=== PATIENT | male | born 1965 | race Two or more races ===

== ENCOUNTER 2025-02-01 09:04 | Emergency (ER) | payer MEDICAID, SELFPAY ==
[2025-02-01 09:11] VITALS: BP 149/79; PULSE 67; RESP 18; TEMP 36.5; O2SAT 98; BMI 30.4
--- NOTE | 2025-02-01 09:21 | PD.EDLOWEX ---
Lower Extremity Injury RME/HPI General Chief Complaint: Extremity Injury, Lower Stated Complaint: Ulcer to left foot Time Seen by Provider: 02/01/25 09:20 Arrival date/time: 02/01/25 09:04 59-year-old male with medical history significant for diabetes presents to the emergency department today with complaints of a skin sore to the bottom of his left foot patient reports he first noticed it yesterday. Patient reports no fever nausea or vomiting no significant pain. Patient reports that he has diabetes and was instructed should he ever have any issues to come to the ER immediately to prevent significant infection. Patient also reports he has an abrasion to the right espinal which has been there for some time which she notices draining Limitations: no limitations Related Data Home Medications ?Medication ?Instructions ?Recorded ?Confirmed aspirin 81 mg capsule 81 mg PO QDAY 05/05/23 05/05/23 empagliflozin 12.5 mg-metformin 1 tab PO BID 05/05/23 05/05/23 1,000 mg tablet (Synjardy) gabapentin 300 mg capsule 300 mg PO BID 05/05/23 05/05/23 hydroxyzine HCl 25 mg tablet 25 mg PO HS PRN Anxiety 05/05/23 05/05/23 insulin glargine 100 unit/mL (3 20 unit subcut QAM 05/05/23 05/05/23 mL) subcutaneous pen (Basaglar KwikPen U-100 Insulin) insulin lispro 100 unit/mL 10 unit subcut DAILY 05/05/23 05/05/23 subcutaneous pen semaglutide 7 mg tablet (Rybelsus) 7 mg PO QDAY 05/05/23 05/05/23 simvastatin 10 mg tablet 10 mg PO QPM 05/05/23 05/05/23 Previous Rx's ?Medication ?Instructions ?Recorded clindamycin HCl 150 mg capsule 450 mg (3 x 150 mg) PO TID 7 days 02/01/25 #63 caps ibuprofen 600 mg tablet 600 mg PO Q6H #30 tabs 02/01/25 mupirocin 2 % topical ointment 1 applic topical TID 10 days #22 02/01/25 grams Allergies Allergy/AdvReac Type Severity Reaction Status Date / Time No Known Allergies Allergy Verified 02/01/25 09:06 Review of Systems Review of Systems Systems Reviewed: All systems reviewed, normal except as documented Constitutional Constitutional: Reports system reviewed and no additional complaints, except as documented, Denies fever(s) and Denies headache(s) Eyes Eyes: Reports system reviewed and no additional complaints, except as documented and Denies blurry vision ENT Ears, Nose, Mouth, and Throat: Reports system reviewed and no additional complaints, except as documented, Denies headache(s), Denies nasal congestion and Denies nasal discharge Cardiovascular Cardiovascular: Reports system reviewed and no additional complaints, except as documented, Denies chest pain and Denies dyspnea Respiratory Respiratory: Reports system reviewed and no additional complaints, except as documented, Denies chest congestion, Denies cough and Denies dyspnea Gastrointestinal Gastrointestinal: Reports system reviewed and no additional complaints, except as documented and Denies abdominal pain Integumentary/Breasts Skin/Breast: Reports system reviewed and no additional complaints, except as documented, Denies rash and Reports other (Right leg/espinal abrasion with drainage, skin blister left foot) Neurologic Neurologic: Reports system reviewed and no additional complaints, except as documented, Reports as per HPI and Denies headache(s) Past Medical History Past Medical History NEUROLOGIC: Positive Neurological Disorders and Peripheral Neuropathy CARDIAC: Positive Cardiac Disorders, Hypercholesterolemia and Hypertension; Negative Congestive Heart Failure RESPIRATORY: Negative Chronic Obstructive Pulmonary Disease (COPD) GASTROINTESTINAL: Positive Gastrointestinal Disorders and Gall Bladder Disease GENITOURINARY: Negative Genitourinary Disorders or Renal Disease MUSCULOSKELETAL: Positive Musculoskeletal Disorders ENDOCRINE: Positive Endocrine Disorders and Diabetes Mellitus Type 2; Negative Diabetes Mellitus Type 1 HEMATOLOGIC: Negative Blood Disorders PSYCHO/SOCIAL: Positive Anxiety OTHER HISTORY: Negative Hospitalization, Autoimmune Disease, Shingles, Blood Transfusions, Anesthesia Reactions, MRSA, Clostridium Difficile or Cancer Family History FAMILY HISTORY: Negative Family Psychiatric Problems, Family Respiratory Disorders, Family Cardiac Disorders, Family Gastrointestinal Problems, Family Cancer, Family Surgery or Family Anesthesia Reaction Social History SMOKING STATUS: Never smoker ED Exam General Limitations: Present no limitations General appearance: Present alert and in no apparent distress Head Head exam: Present atraumatic Eye Eye exam: Present normal appearance, PERRL and EOMI ENT ENT exam: Present normal exam, normal oropharynx and mucous membranes moist Neck Neck exam: Present normal inspection, full ROM and trachea midline Chest Chest inspection: Present normal inspection and symmetric chest wall rise Respiratory Respiratory exam: Present normal lung sounds bilaterally Cardiovascular Cardiovascular exam: Present regular rate, normal rhythm and normal heart sounds Abdominal Exam Abdominal exam: Present soft and normal bowel sounds Extremities Exam Extremities exam: Present normal inspection and full ROM Back Exam Back exam: Present normal inspection and full ROM Neurological Exam Neurological exam: Present alert, oriented X3 and CN II-XII intact Psychiatric Psychiatric exam: Present normal affect and normal mood Skin Skin exam: Present warm, dry and other (Right leg/espinal abrasion with drainage, skin blister left foot) Course Quality Measures none Orders Category Date Time Status Lidocaine 1% 20 ml [Xylocaine 1% 20 ML] Med 02/01/25 09:20 Discontinued 2.1 ml INFL X1 ONE cefTRIAXone [Rocephin] Med 02/01/25 09:20 Discontinued 1,000 mg IM X1 ONE cefTRIAXone [Rocephin] 1,000 mg Med 02/01/25 09:22 Discontinued Lidocaine 1% 20 ml [Xylocaine 1% 20 ML] 2.1 ml IM X1 Vital Signs Vital signs: Vital Signs Temperature 97.7 F 02/01/25 09:11 Pulse Rate 67 02/01/25 09:11 Respiratory Rate 18 02/01/25 09:11 Blood Pressure 149/79 H 02/01/25 09:11 Pulse Oximetry (%) 98 02/01/25 09:11 Oxygen Delivery Method Room Air 02/01/25 09:11 O2 saturation 98% room air within normal limits Extremity Injury, Lower MDM Narrative MDM Narrative:: 59-year-old male with medical history significant for diabetes presents to the emergency department today with complaints of a skin sore to the bottom of his left foot patient reports he first noticed it yesterday. Patient reports no fever nausea or vomiting no significant pain. Patient reports that he has diabetes and was instructed should he ever have any issues to come to the ER immediately to prevent significant infection. Patient also reports he has an abrasion to the right espinal which has been there for some time which she notices draining Although osteomyelitis is a consideration patient has no fever nausea or vomiting patient reports that the sores only been there for 1 day on his foot and on the right espinal it appears to be superficial Patient given Rocephin here discharged home with antibiotics and pain medication I did explain to the patient should symptoms persist or worsen he needs to return to the ER for further evaluation Patient data External records reviewed:: [facility] previous records Clinical information provided by:: patient Social determinants that could affect healthcare access:: none Patient has the following chronic illnesses:: None How is presenting disease/condition affected by chronic disease/condition?: no chronic disease Evaluation data The following diagnostics were reviewed and interpreted by me:: radiology exam(s) Lab and/or radiology exams considered but not ordered:: N/A Interpretation Summary: N/A Medications / Prescriptions Medications or Prescriptions considered but not ordered:: Given Medication administrations:: Medication Administration History Discontinued Medications Ceftriaxone Sodium (Ceftriaxone Sod Inj 1,000 Mg Vial) 1,000 mg IM X1 ONE Stop: 02/01/25 09:21 Ceftriaxone Sodium 1,000 mg/ (Lidocaine HCl 2.1 ml) 0 mg IM X1 ONE Stop: 02/01/25 09:23 Lidocaine HCl (Lidocaine Hcl 1% 20 Ml Vial) 2.1 ml INFL X1 ONE Stop: 02/01/25 09:21 Given Consultations Consultation(s) initiated? (list below): No Diagnosis Extremity Injury, Lower Differential Diagnosis: other (Abrasion, laceration, infection, abscess, cellulitis) Most likely diagnosis given after review of the tests above:: No criteria Admission Indicated Admission indicated?: not indicated Admission Request Was there a request for admission?: No Disposition Plan Disposition Plan: Discharge Discharge Attestation Discharge Attestation: The patient and all family members were given an opportunity to ask questions and understood the discharge instructions. Discharge instructions specifically effects, indications for sooner follow up or return to the emergency department, and the expected course of current diagnosis. Patient condition: Stable Discharge Plan Plan Patient Disposition: HOME (Self Care) Disposition Comment: Stable Prescriptions/Referrals Prescriptions/Med Rec: New clindamycin HCl 150 mg capsule 450 mg PO TID 7 Days Qty: 63 0RF mupirocin 2 % ointment 1 applic topical TID 10 Days Qty: 22 0RF ibuprofen 600 mg tablet 600 mg PO Q6H Qty: 30 0RF No Action simvastatin 10 mg Tablet 10 mg PO QPM gabapentin 300 mg Capsule 300 mg PO BID hydroxyzine HCl 25 mg Tablet 25 mg PO HS PRN (Reason: Anxiety) insulin lispro 100 unit/mL Insulin Pen 10 unit SUBCUT DAILY insulin glargine [Basaglar KwikPen U-100 Insulin] 100 unit/mL (3 mL) Insulin Pen 20 unit SUBCUT QAM Synjardy 12.5-1,000 mg Tablet 1 tab PO BID Rybelsus 7 mg Tablet 7 mg PO QDAY aspirin 81 mg Capsule 81 mg PO QDAY Problem List Clinical Impression: Blister of foot, Infected abrasion of right leg Patient/Caregiver Discharge Instructions Education Materials: ED Blister (Adult) Additional Instructions: Please follow up with your primary care doctor in the next 24-48hrs for any worsening symptoms return here immediately Print Language: Yoruba Stand Alone Forms: Lucina Award Info., Patient Portal Info Letter PA/SOFTBALL CORE MOLDER Supervising Physician PA/SOFTBALL CORE MOLDER Supervising Physician: Dr. merrill
[2025-02-01] MEDS: cefTRIAXone 1,000 MG, LIDOCAINE 1% 20 ML 2.1 ML IM (10:28)
== END 2025-02-01 10:49 | disposition home or self-care (01) ==
LOC: SERX 10:34
PROVIDERS: Emergency Provider Emergency Medicine; PCP Nurse Practitioner Family
DX: S90.822A Blister (nonthermal), left foot, initial encounter (principal); L08.9 Local infection of the skin and subcutaneous tissue, unspecified; S80.811A Abrasion, right lower leg, initial encounter; E11.9 Type 2 diabetes mellitus without complications
CPT/HCPCS: 96372; 99283; J0696; J3490

== ENCOUNTER 2025-02-08 13:35 | Emergency (ER) | payer MEDICAID, SELFPAY ==
[2025-02-08 13:35] VITALS: BMI 29.3
[2025-02-08 13:47] VITALS: BP 182/92; BP 185/97; PULSE 66; RESP 18; TEMP 36.4; O2SAT 96
--- NOTE | 2025-02-08 13:52 | PD.EDSKIN ---
ED Skin Abcess FB-RME/HPI General Chief complaint: Skin/Abscess/Foreign Body Stated complaint: BLISTER LEFT FOOT Time Seen by Provider: 02/08/25 13:47 Arrival date/time: 02/08/25 13:35 59-year-old male presents the emergency room today stating that he was previously seen here for a blister of his left foot patient reports this was approximately a week ago reports that yesterday the blister opened and wants to have it evaluated. Patient reports he has an appointment with Dr. Monteiro podiatry Limitations: no limitations Related Data Home Medications ?Medication ?Instructions ?Recorded ?Confirmed aspirin 81 mg capsule 81 mg PO QDAY 05/05/23 05/05/23 empagliflozin 12.5 mg-metformin 1 tab PO BID 05/05/23 05/05/23 1,000 mg tablet (Synjardy) gabapentin 300 mg capsule 300 mg PO BID 05/05/23 05/05/23 hydroxyzine HCl 25 mg tablet 25 mg PO HS PRN Anxiety 05/05/23 05/05/23 insulin glargine 100 unit/mL (3 20 unit subcut QAM 05/05/23 05/05/23 mL) subcutaneous pen (Basaglar KwikPen U-100 Insulin) insulin lispro 100 unit/mL 10 unit subcut DAILY 05/05/23 05/05/23 subcutaneous pen semaglutide 7 mg tablet (Rybelsus) 7 mg PO QDAY 05/05/23 05/05/23 simvastatin 10 mg tablet 10 mg PO QPM 05/05/23 05/05/23 Previous Rx's ?Medication ?Instructions ?Recorded acetaminophen 500 mg capsule 1,000 mg (2 x 500 mg) PO Q8HR PRN 02/01/25 pain #30 caps mupirocin 2 % topical ointment 1 applic topical TID 10 days #22 02/01/25 grams sulfamethoxazole 800 1 tab PO BID 7 days #14 tabs 02/08/25 mg-trimethoprim 160 mg tablet (Bactrim DS) Allergies Allergy/AdvReac Type Severity Reaction Status Date / Time No Known Allergies Allergy Verified 02/08/25 13:36 Review of Systems Review of Systems Systems Reviewed: All systems reviewed, normal except as documented Constitutional Constitutional: Reports system reviewed and no additional complaints, except as documented, Denies fever(s) and Denies headache(s) Eyes Eyes: Reports system reviewed and no additional complaints, except as documented and Denies blurry vision ENT Ears, Nose, Mouth, and Throat: Reports system reviewed and no additional complaints, except as documented, Denies headache(s), Denies nasal congestion and Denies nasal discharge Cardiovascular Cardiovascular: Reports system reviewed and no additional complaints, except as documented, Denies chest pain and Denies dyspnea Respiratory Respiratory: Reports system reviewed and no additional complaints, except as documented, Denies chest congestion, Denies cough and Denies dyspnea Gastrointestinal Gastrointestinal: Reports system reviewed and no additional complaints, except as documented and Denies abdominal pain Integumentary/Breasts Skin/Breast: Reports system reviewed and no additional complaints, except as documented, Denies rash and Reports other (Blister plantar aspect left foot) Neurologic Neurologic: Reports system reviewed and no additional complaints, except as documented, Reports as per HPI and Denies headache(s) Past Medical History Past Medical History NEUROLOGIC: Positive Neurological Disorders and Peripheral Neuropathy CARDIAC: Positive Cardiac Disorders, Hypercholesterolemia and Hypertension; Negative Congestive Heart Failure RESPIRATORY: Negative Chronic Obstructive Pulmonary Disease (COPD) GASTROINTESTINAL: Positive Gastrointestinal Disorders and Gall Bladder Disease GENITOURINARY: Negative Genitourinary Disorders or Renal Disease MUSCULOSKELETAL: Positive Musculoskeletal Disorders ENDOCRINE: Positive Endocrine Disorders and Diabetes Mellitus Type 2; Negative Diabetes Mellitus Type 1 HEMATOLOGIC: Negative Blood Disorders PSYCHO/SOCIAL: Positive Anxiety OTHER HISTORY: Negative Hospitalization, Autoimmune Disease, Shingles, Blood Transfusions, Anesthesia Reactions, MRSA, Clostridium Difficile or Cancer Family History FAMILY HISTORY: Negative Family Psychiatric Problems, Family Respiratory Disorders, Family Cardiac Disorders, Family Gastrointestinal Problems, Family Cancer, Family Surgery or Family Anesthesia Reaction Social History SMOKING STATUS: Never smoker ED Exam General Limitations: Present no limitations General appearance: Present alert and in no apparent distress Head Head exam: Present atraumatic Eye Eye exam: Present normal appearance, PERRL and EOMI ENT ENT exam: Present normal exam, normal oropharynx and mucous membranes moist Neck Neck exam: Present normal inspection, full ROM and trachea midline Chest Chest inspection: Present normal inspection and symmetric chest wall rise Respiratory Respiratory exam: Present normal lung sounds bilaterally Cardiovascular Cardiovascular exam: Present regular rate, normal rhythm and normal heart sounds Abdominal Exam Abdominal exam: Present soft and normal bowel sounds Extremities Exam Extremities exam: Present full ROM and tenderness Expanded Lower Extremity Exam Bottom foot image:  1. Blister which opened no surrounding cellulitis no evidence of abscess no drainage Back Exam Back exam: Present normal inspection and full ROM Neurological Exam Neurological exam: Present alert, oriented X3 and CN II-XII intact Psychiatric Psychiatric exam: Present normal affect and normal mood Skin Skin exam: Present warm, dry, intact and normal color Course Quality Measures none Vital Signs Vital signs: Vital Signs Temperature 97.6 F 02/08/25 13:47 Pulse Rate 66 02/08/25 13:47 Respiratory Rate 18 02/08/25 13:47 Blood Pressure 185/97 H 02/08/25 13:47 Pulse Oximetry (%) 96 02/08/25 13:47 Oxygen Delivery Method Room Air 02/08/25 13:47 O2 saturation 96% room air with normal limits Skin / Abscess / Foreign Body MDM Narrative MDM Narrative:: 59-year-old male presents the emergency room today stating that he was previously seen here for a blister of his left foot patient reports this was approximately a week ago reports that yesterday the blister opened and wants to have it evaluated. Patient reports he has an appointment with Dr. Monteiro podiatry On exam patient well-appearing patient does not appear ill or toxic patient is no evidence of infection patient has a blister which opened there is no surrounding cellulitis or evidence of abscess does not appear to be deep infection Patient be treated with course of antibiotics and instructed to follow-up with his specialist for worsening symptoms return immediately Patient data External records reviewed:: [facility] previous records Clinical information provided by:: patient Social determinants that could affect healthcare access:: none Patient has the following chronic illnesses:: History How is presenting disease/condition affected by chronic disease/condition?: uneffected by Evaluation data The following diagnostics were reviewed and interpreted by me:: other (specify) Lab and/or radiology exams considered but not ordered:: Considered not indicated Interpretation Summary: N/A Medications / Prescriptions Medications or Prescriptions considered but not ordered:: Given Medication administrations:: Given Consultations Consultation(s) initiated? (list below): No Diagnosis Skin/Abscess Differential Diagnosis: abscess of skin or subcutaneous tissue, cellulitis and other (Blister) Most likely diagnosis given after review of the tests above:: Blister Admission Indicated Admission indicated?: not indicated Admission Request Was there a request for admission?: No Disposition Plan Disposition Plan: Discharge Discharge Attestation Discharge Attestation: The patient and all family members were given an opportunity to ask questions and understood the discharge instructions. Discharge instructions specifically effects, indications for sooner follow up or return to the emergency department, and the expected course of current diagnosis. Patient condition: Stable Discharge Plan Plan Patient Disposition: HOME (Self Care) Disposition Comment: Stable Prescriptions/Referrals Prescriptions/Med Rec: New sulfamethoxazole-trimethoprim [Bactrim DS] 800-160 mg tablet 1 tab PO BID 7 Days Qty: 14 0RF No Action mupirocin 2 % ointment 1 applic topical TID 10 Days Qty: 22 0RF acetaminophen 500 mg capsule 1,000 mg PO Q8HR PRN (Reason: pain) Qty: 30 0RF simvastatin 10 mg Tablet 10 mg PO QPM gabapentin 300 mg Capsule 300 mg PO BID hydroxyzine HCl 25 mg Tablet 25 mg PO HS PRN (Reason: Anxiety) insulin lispro 100 unit/mL Insulin Pen 10 unit SUBCUT DAILY insulin glargine [Basaglar KwikPen U-100 Insulin] 100 unit/mL (3 mL) Insulin Pen 20 unit SUBCUT QAM Synjardy 12.5-1,000 mg Tablet 1 tab PO BID Rybelsus 7 mg Tablet 7 mg PO QDAY aspirin 81 mg Capsule 81 mg PO QDAY Problem List Clinical Impression: Blister of foot Patient/Caregiver Discharge Instructions Education Materials: ED Blister (Adult) Additional Instructions: Please keep your appointment with your specialist on and for any worsening symptoms return immediately Print Language: Uzbek Stand Alone Forms: Lucina Award Info., Patient Portal Info Letter PA/DIGGING MACHINE OPERATOR Supervising Physician PA/INGRIS Supervising Physician: Dr Kimble
== END 2025-02-08 13:57 | disposition home or self-care (01) ==
LOC: SERX 14:01
PROVIDERS: Emergency Provider Emergency Medicine; PCP Nurse Practitioner Family
DX: S90.822A Blister (nonthermal), left foot, initial encounter (principal); X58.XXXA Exposure to other specified factors, initial encounter
CPT/HCPCS: 99281